=== PATIENT | female | born 1995 | race Hispanic/Latino ===

== ENCOUNTER 2021-11-03 11:23 | Outpatient (CLI) | END 2021-11-03 11:24 | disposition home or self-care (01) | LOC: LAB 11:23 | PROVIDERS: ATTEND Obstetrics & Gynecology | DX: E03.9 Hypothyroidism, unspecified (principal); Z01.419 Encounter for gynecological examination (general) (routine) without abnormal findings | CPT/HCPCS: 36415 ==

== ENCOUNTER 2021-11-05 15:28 | Outpatient (CLI) | payer BC ==
[2021-11-05 16:04] LABS: Hematocrit 38.5 % (30.3-42.9); Mean Corpuscular HGB Conc 34 % (30-34); Mean Corpuscular Volume 92 fl (79-97); Platelet Count 199 K/mm3 (140-440); Red Blood Count 4.17 M/mm3 (3.65-5.03); Red Cell Distribution Width 12.1 % (13.2-15.2)
[2021-11-05 16:21] LABS: Alanine Aminotransferase 10 units/L (7-56); Blood Urea Nitrogen 15 mg/dL (7-17); Calcium 9.5 mg/dL (8.4-10.2); Hemolysis Index 19
[2021-11-05 16:30] LABS: BUN/Creatinine Ratio 21
[2021-11-05 16:31] LABS: Microalbumin/Creatinine Ratio 16.9 ug/mg
== END 2021-11-05 15:29 | disposition home or self-care (01) ==
LOC: LAB 15:28
DX: E03.9 Hypothyroidism, unspecified (principal); R53.83 Other fatigue; Z79.899 Other long term (current) drug therapy
CPT/HCPCS: 36415; 80053; 82043; 82306; 84436; 84443; 85027